=== PATIENT | male | born 1990 | race Caucasian/White ===

== ENCOUNTER → 2019-01-02 | Outpatient (CLI) | payer OTHER ==
--- NOTE | 2019-01-02 14:40 | RADIOLOGY IMAGING REPORT ---
FACILITY: [facility] PATIENT NAME: Surya Hastings : 1990 MR: [id number] V: [id number] EXAM DATE: ORDERING PHYSICIAN: MIRTA STILL TECHNOLOGIST: Location: [facility] [place] Patient: Surya Hastings : 1990 Visit/Account:[id number] Date of Sevice: 01/02/2019 Thoracic spine, three views, and lumbar spine, two views. HISTORY: Back pain. COMPARISON: None. The thoracic discs are normal in height. Bony alignment is unremarkable. No acute fractures are mike ntified. The cervical-thoracic junction and the posterior elements are partially obscured by the celina ulders and ribs. Bronchovascular markings are accentuated by a suboptimal inspiration. Small endplate osteophytes and mild loss of disc height are present at L4-5. Lumbar alignment is oth erwise normal. Other lumbar discs are normal in height. The posterior elements are unremarkable. The sacroiliac joints are unremarkable. No acute fractures. IMPRESSION: Mild degenerative disc disease at L4-5. Otherwise negative thoracolumbar spine. Report Dictated By: Mandeep Kaba MD at 01/02/2019 2:29 PM Report E-Signed By: Mandeep Kaba MD at 01/02/2019 2:32 PM WSN:[id number]
--- NOTE | 2019-01-02 14:40 | RADIOLOGY IMAGING REPORT ---
FACILITY: [facility] PATIENT NAME: Surya Hastings : 1990 MR: [id number] V: [id number] EXAM DATE: ORDERING PHYSICIAN: MIRTA STILL TECHNOLOGIST: Location: [facility] Patient: Surya Hastings : 1990 Visit/Account:[id number] Date of Sevice: 01/02/2019 Thoracic spine, three views, and lumbar spine, two views. HISTORY: Back pain. COMPARISON: None. The thoracic discs are normal in height. Bony alignment is unremarkable. No acute fractures are mike ntified. The cervical-thoracic junction and the posterior elements are partially obscured by the celina ulders and ribs. Bronchovascular markings are accentuated by a suboptimal inspiration. Small endplate osteophytes and mild loss of disc height are present at L4-5. Lumbar alignment is oth erwise normal. Other lumbar discs are normal in height. The posterior elements are unremarkable. The sacroiliac joints are unremarkable. No acute fractures. IMPRESSION: Mild degenerative disc disease at L4-5. Otherwise negative thoracolumbar spine. Report Dictated By: Mandeep Kaba MD at 01/02/2019 2:29 PM Report E-Signed By: Mandeep Kaba MD at 01/02/2019 2:32 PM WSN:[id number]
== END ==
LOC: RAD 12:55
PROVIDERS: ATTEND Nurse Practitioner Family
DX: M51.36 Other intervertebral disc degeneration, lumbar region (principal)
CPT/HCPCS: 72072; 72100